=== PATIENT | female | born 1955 | race Caucasian/White ===

== ENCOUNTER 2016-04-13 19:02 | Inpatient (IN) | payer BC ==
[~2016-04-13] VITALS: Ht 162.6 cm; Wt 82.9 kg
[2016-04-13] MEDS ORDERED: DIPHENOXYLATE/ATROP TAB 2.5 MG TAB ONE (21:34)
[2016-04-13] MEDS ORDERED: CEFTRIAXONE 1 GM VIAL ONE (22:24)
[2016-04-13] MEDS ORDERED: SODIUM CHLORIDE 0.9% 100 ML IV ONE (22:24)
[2016-04-13] MEDS ORDERED: INSULIN DRIP 1 UNIT/ML 100 ML IV SCH (23:15)
[2016-04-13] MEDS ORDERED: SALINE FLUSH 10 ML FLUSH PRN (23:15)
[2016-04-14] VITALS (8 sets, daily range): BP systolic 107–129; RESP 16–19; TEMP 97.9–100; Ht 162.6 cm; Wt 82.9 kg
[2016-04-14] MEDS: SALINE FLUSH 10 ML FLUSH SCH ×3 (00:08→20:00)
[2016-04-14] MEDS: SODIUM CHLORIDE 0.9% 1,000 ML IV SCH ×2 (00:08→11:07)
[2016-04-14] MEDS: ONDANSETRON 4 MG VIAL IV PRN ×2 (00:08→07:19)
[2016-04-14] MEDS ORDERED: DEXTROSE 50% SYRINGE 50 ML IV PRN (00:55)
[2016-04-14] MEDS ORDERED: GLUCAGON 1 MG VIAL IM PRN (00:55)
[2016-04-14] MEDS: SODIUM CHLORIDE 0.9% FLUSH BAG 500 ML IV SCH (05:56)
[2016-04-14] MEDS: LEVOTHYROXINE 0.075 MG TAB PO SCH (06:11)
[2016-04-14] MEDS: PANTOPRAZOLE 40 MG TAB PO SCH (06:11)
[2016-04-14] MEDS ORDERED: Flu Vaccine Quadrivalent 60 MCG/0.5 ML IM.VACC ONE (07:00)
[2016-04-14] MEDS: ASPIRIN 81 MG CHEW TAB PO SCH (08:14)
[2016-04-14] MEDS: NEBIVOLOL 2.5 MG TAB PO SCH (08:14)
[2016-04-15 03:30] VITALS: BP_SYST 114; RESP 18; TEMP 98.8
[2016-04-15] MEDS: SODIUM CHLORIDE 0.9% FLUSH BAG 500 ML IV SCH (05:45)
[2016-04-15 07:35] VITALS: BP_SYST 130; RESP 18; TEMP 98.2
[2016-04-15] MEDS: PANTOPRAZOLE 40 MG TAB PO SCH (07:46)
[2016-04-15] MEDS: LEVOTHYROXINE 0.075 MG TAB PO SCH (07:46)
[2016-04-15 11:45] VITALS: BP_SYST 128; RESP 18; TEMP 98.2
[2016-04-15] MEDS: ASPIRIN 81 MG CHEW TAB PO SCH (11:50)
[2016-04-15] MEDS: NEBIVOLOL 2.5 MG TAB PO SCH (11:50)
[2016-04-15] MEDS: SALINE FLUSH 10 ML FLUSH SCH (11:50)
[2016-04-15 12:34] VITALS: BP_SYST 128; RESP 18; TEMP 98.2
[2016-04-15 12:40] VITALS: BP_SYST 128; RESP 18; TEMP 98.2
== END 2016-04-15 15:00 | disposition home or self-care (01) | DRG 690 ==
LOC: ENRESERVTM → ENRESERVDT → ER 19:02 → EMR 23:14 → PCU2 23:57 → OBSVTOIN 04-14 10:34 → ENPENDDIS 04-14 10:34
PROVIDERS: ADMIT Family Medicine; ATTEND Family Medicine
CPT/HCPCS: 36415; 71010; 76705; 78452; 80053; 80061; 81001; 82550; 82947; 83036; 83605; 83735; 83880; 84484; 85025; 85379; 85610; 85730; 87040; 87045; 87046; 87088; 87493; 93005; 93017; 94799; 96365; 99219; 99233